=== PATIENT | female | born 1990 | race Caucasian/White ===

== ENCOUNTER 2019-01-16 02:10 | Inpatient (IN) | payer OTHER ==
[2019-01-16] MEDS ORDERED: Buffered Lidocaine 1% SYRIN* 1 ML/SYRINGE INTRADERM ONE (03:19)
[2019-01-16] MEDS ORDERED: Lactated Ringers 1000 ML Bag* 1,000 ML IV ONE (03:19)
[2019-01-16] MEDS ORDERED: Penicillin G Potassium IV* 5,000,000 UNITS in NS 0.9% 100 ML* 100 ML IVPB ONE (03:19)
[2019-01-16 03:45] LABS: ABS Basophils 0 10^3/ul (0-0.2); ABS Eosinophils 0.1 10^3/ul (0-0.6); ABS Lymphocytes 1.5 10^3/ul (1.0-4.8); ABS Monocytes 0.9 10^3/ul (0-0.8); ABS Neutrophils 11.3 10^3/ul (1.5-7.7); ABS Nucleated RBC 0 10^3/ul; Eosinophil % 0.5 %; Hematocrit 33 % (33-41); Hemoglobin 10.7 g/dL (12.0-16.0); Mean Corpuscular HGB Conc 33 g/dL (31-36); Mean Corpuscular Hemoglobin 27 pg (27-31); Mean Corpuscular Volume 84 fL (80-97); Mean Platelet Volume 9.6 fL (7.4-10.4); Nucleated Red Blood Cells % 0.1; Platelet Count 262 10^3/uL (150-450); Red Cell Distribution Width 14 % (10.5-15); White Blood Count 13.8 10^3/uL (3.5-10.8)
[2019-01-16] MEDS ORDERED: Lactated Ringers 1000 ML Bag* 1,000 ML IV SCH ×2 (04:00→06:00)
[2019-01-16] MEDS ORDERED: Oxytocin in LR* 20 UNITS/1,000 ML BAG IVPB ONE (05:11)
[2019-01-16] MEDS ORDERED: Ibuprofen TAB* 600 MG PO PRN (05:59)
[2019-01-16] MEDS ORDERED: Dibucaine 1% 28.35 GM TUBE PR PRN (05:59)
[2019-01-16] MEDS ORDERED: Acetaminophen TAB* 325 MG PO PRN (05:59)
[2019-01-16] MEDS ORDERED: Glycerin ADULT SUPP PR PRN (05:59)
[2019-01-16] MEDS ORDERED: RHO D Immune Globulin (HUMAN)* 300 MCG = 1,500 I.U. INJ IM ONE (05:59)
[2019-01-16] MEDS ORDERED: Witch Hazel PAD* JAR TOPICAL PRN (05:59)
[2019-01-16] MEDS ORDERED: Oxytocin in LR* 20 UNITS/1,000 ML BAG IVPB SCH (06:00)
[2019-01-16] MEDS ORDERED: Lidocaine 1% INJ* 10 MG/ML 30 ML SDV ONE (06:54)
[2019-01-16] MEDS ORDERED: Penicillin G Potassium IV* 2,500,000 UNITS in NS 0.9% 100 ML* 100 ML IVPB SCH (08:00)
--- NOTE | 2019-01-16 08:03 | HP ---
General Information - Reason for Visit Pt reports ctx, getting stronger over time. - General Information Maternal Age: 28 Grav: 1 Para: 0 SAB: 0 IEA: 0 Estimated Due Date: 01/16/19 Determined By: LMP Maternal Blood Type and Rh: O Negative - Results this Serology/RPR Result: Non-Reactive Rubella Result: Immune HBsAg Result: Negative HIV Result: Negative GBS Culture Result: Positive Past Medical History Delivery History: See Records - primigravida Pertinent Past Medical History: See Records - Lyme disease, depression / anxiety, migraines Pertinent Past Surgical History: See Records - wisdom tooth extraction Pertinent Family History: Non-Contributory - Antepartal Records Antepartal Records: Reviewed, Uncomplicated Review of Systems Constitutional: Uncomfortable - coping well with ctx CV Complaint: No Respiratory: Shortness of Breath: No Gastrointestinal: No Nausea/Vomiting, Normal Bowel Movement Genitourinary: No Dysuria, No Bleeding, No Leaking Fluid - no leaking fluid on arrival, but had SROM shortly after arrival Musculoskeletal: No Complaint, No Epigastric Pain Neurological: No Headache, No Visual Changes Movement: Normal Exam Allergies/Adverse Reactions: Allergies diphenhydramine Allergy (Verified 01/16/19 04:07) Shakes Vital Signs 01/16/19 01/16/19 01/16/19 05:41 06:24 07:15 Temperature 98.9 F 99.2 F 98.5 F Pulse Rate 79 75 93 Respiratory 16 16 18 Rate Blood Pressure 122/71 124/76 113/70 (mmHg) Lab Values - Entire Visit: Laboratory Tests 01/16/19 01/16/19 03:20 03:20 WBC 13.8 H RBC 3.90 Hgb 10.7 L Hct 33 MCV 84 MCH 27 MCHC 33 RDW 14 Plt Count 262 MPV 9.6 Neut % (Auto) 81.4 Lymph % (Auto) 11.0 Hale % (Auto) 6.8 Eos % (Auto) 0.5 Baso % (Auto) 0.3 Absolute Neuts (auto) 11.3 H Absolute Lymphs (auto) 1.5 Absolute Monos (auto) 0.9 H Absolute Eos (auto) 0.1 Absolute Basos (auto) 0 Absolute Nucleated RBC 0 Nucleated RBC % 0.1 Blood Type O Negative Antibody Screen Positive Antibody Identification Anti-D Direct Antiglob Test Negative - Measurements Height: 5 ft 2 in Weight: 69.853 kg Weight in lbs: 154.165703 Body Mass Index (BMI): 28.1 Pre- Weight: 58.967 kg Weight Gained This : 24 lbs and 0 ozs - Exam Breast: Breast Exam Deferred CVA: No CVA Tenderness Extremities: No Edema Heart: Normal Rhythm/Heart Sounds HEENT: No Significant Findings Lungs: Clear Bilaterally Rectal: Rectal Exam Deferred Reflexes: DTR 2+ Thyroid: No Thyromegaly - Abdominal Exam Abdomen Exam: Non-Tender, Fundal Height Consistent with Dates - Ultrasound/Biophysical Profile Ultrasound Status: Not Done Targeted Exam Findings See L&D Outpatient Visit Provider Note for Findings: N/A Estimated Weight: 7.5# Membrane Status: SROM Amniotic Fluid Evaluation: Gross Rupture Bleeding/Discharge: Bloody Show - Exam deferred initially on arrival, not examined until fully dilated with urge to push EFM Findings - External Monitor Findings Baseline Heart Rate: 115 External Monitor Findings: No Pattern of Variable or Late Decelerations, Variability Moderate, Baseline Stable, Accelerations Absent Contractions: Regular Contraction Frequency: 3-4 minutes Assessment/Plan - Assessment 28 year old primigravida at term in active labor with spontaneously ruptured membranes, no evidence of acidemia, no evidence of chorioamnionitis - Plan Plan: Admit - Anticipate Vaginal Delivery - Date/Time of Admission Date of Admission: 01/16/19 Time of Admission: 03:00
[2019-01-16] MEDS: Docusate CAP* 100 MG PO SCH ×3 (10:06→20:57)
--- NOTE | 2019-01-16 21:58 | PROCNOTE ---
[facility] OB: Delivery Note - Delivery A Date of : 01/16/19 Time of : 04:59 [place] Sex: Female Weight at : 3.135 kg Score 1 Minute: 9 Score 5 Minutes: 9 Gestational Age in Weeks and Days at Delivery: 40 Weeks and 0 Days Delivery Method: Spontaneous Vaginal Labor: Spontaneous Amniotic Fluid: Clear Estimated Blood Loss: 500 Anesthesia/Analgesia: None Delivered By: Radha Arroyo - Nursery Level of Nursery: Regular/Bedside - Perineum Perineal Injury: 1st Degree Perineal Repair: By Delivering Practioner - Events Delivery Events of Note: Partial Course of Antibiotics - Risk for Falls Delivered OB Patient- Risk for Falls: Heavy Bleeding Fall Risk: Patient is at High Risk for Falls - Additional Delivery Notes Additional Delivery Notes: Pt admitted to Labor and Delivery in spontaneous active labor at term. Pt experienced SROM shortly after arrival, and GBS prophylaxis was initiated. She used the tub, position changes, and labor support for pain relief. Pt soon began to report pressure and an urge to push and was found to be fully dilated. Pt soon began spontaneous pushing efforts with steady descent. Pt brought infant to [facility], and was coached through slow, controlled delivery of the head. Shoulders were tight but followed with the next push. to maternal abdomen, dried and stimulated with vigorous cry, HR> 100. After cord pulsation ceased, cord clamped x2 and cut by 's father. Placenta soon delivered with gentle cord traction. Pitocin administered at 250 cc/hr via IV. Fundal massage expressed large amounts of clots, and bleeding was then minimal. Examination of the perineum revealed small first degree laceration, repaired using absorbable suture resulting in good hemostasis and tissue approximation. Mother and baby stable post delivery, anticipate normal course.
[2019-01-17 07:36] LABS: ABS Basophils 0.1 10^3/ul (0-0.2); ABS Eosinophils 0.2 10^3/ul (0-0.6); ABS Lymphocytes 2.2 10^3/ul (1.0-4.8); ABS Monocytes 0.7 10^3/ul (0-0.8); ABS Neutrophils 5.7 10^3/ul (1.5-7.7); ABS Nucleated RBC 0 10^3/ul; Eosinophil % 2.6 %; Hematocrit 24 % (33-41); Hemoglobin 7.8 g/dL (12.0-16.0); Lymphocyte % 24.5 %; Mean Corpuscular HGB Conc 33 g/dL (31-36); Mean Corpuscular Hemoglobin 28 pg (27-31); Mean Corpuscular Volume 84 fL (80-97); Mean Platelet Volume 9.3 fL (7.4-10.4); Nucleated Red Blood Cells % 0; Platelet Count 208 10^3/uL (150-450); Red Blood Count 2.83 10^6 /uL (3.70-4.87); Red Cell Distribution Width 14 % (10.5-15); White Blood Count 8.9 10^3/uL (3.5-10.8)
[2019-01-17] MEDS: Ferrous Gluconate TAB* 324 MG TAB PO SCH ×2 (08:00→21:43)
[2019-01-17] MEDS: Docusate CAP* 100 MG PO SCH ×3 (08:08→21:11)
[2019-01-18 07:54] VITALS: BP 102/71
[2019-01-18] MEDS: Docusate CAP* 100 MG PO SCH (08:27)
[2019-01-18] MEDS: Ferrous Gluconate TAB* 324 MG TAB PO SCH (08:39)
== END 2019-01-18 11:00 | disposition home or self-care (01) | DRG 560 ==
LOC: MCHOBOUT 02:10 → MCHOB 03:06
PROVIDERS: ADMIT Midwife; ATTEND Midwife
PROC: 10E0XZZ Delivery of Products of Conception, External Approach (ICD-10-PCS; principal; 2019-01-16)
PROC: 0HQ9XZZ Repair Perineum Skin, External Approach (ICD-10-PCS; 2019-01-16)
DX: O99.824 Streptococcus B carrier state complicating childbirth (principal); Z37.0 Single live birth; O99.344 Other mental disorders complicating childbirth; F41.8 Other specified anxiety disorders; O70.0 First degree perineal laceration during delivery; O69.9XX0 Labor and delivery complicated by cord complication, unspecified, not applicable or unspecified; O90.81 Anemia of the puerperium; D64.9 Anemia, unspecified; Z3A.40 40 weeks gestation of pregnancy
CPT/HCPCS: 36415; 85025; 86850; 86870; 86880; 86900; 86901; A9270-GY; J2540

== ENCOUNTER 2021-01-10 14:13 | Inpatient (IN) ==
[2021-01-10] MEDS ORDERED: Lactated Ringers 1000 ml BAG 1,000 ML IV ONE (15:13)
[2021-01-10] MEDS ORDERED: Penicillin G Potassium IV 5,000,000 UNITS in NS 0.9% 100 ml BAG 100 ML IVPB ONE (15:13)
[2021-01-10] MEDS ORDERED: Buffered Lidocaine 1% SYRIN 1 ml INTRADERM ONE (15:13)
[2021-01-10] MEDS ORDERED: Lactated Ringers 1000 ml BAG 1,000 ML IV SCH (16:00)
[2021-01-10 18:54] LABS: Urine Benzodiazepine Screen None Detected (None Detect); Urine Cannabinoids Screen None Detected (None Detect); Urine Opiates Screen None Detected (None Detect)
[2021-01-10] MEDS ORDERED: Dinoprostone 10 MG VAG.SUPP VAGINAL ONE (20:16)
[2021-01-11] MEDS ORDERED: Oxytocin in LR 20 UNITS/1,000 ML BAG IVPB ONE (10:26)
[2021-01-11] MEDS ORDERED: Oxytocin in LR 20 UNITS/1,000 ML BAG IVPB SCH (11:00)
[2021-01-11 11:13] LABS: ABS Basophils 0.1 10^3/ul (0-0.2); ABS Eosinophils 0.1 10^3/ul (0-0.6); ABS Lymphocytes 1.5 10^3/ul (1.0-4.8); ABS Monocytes 0.7 10^3/ul (0-0.8); ABS Neutrophils 7.4 10^3/ul (1.5-7.7); Eosinophil % 1.4 %; Hematocrit 33 % (35-47); Hemoglobin 11.1 g/dL (12.0-16.0); Lymphocyte % 15.3 %; Mean Corpuscular HGB Conc 34 g/dL (31-36); Mean Corpuscular Hemoglobin 30 pg (27-31); Mean Corpuscular Volume 88 fL (80-97); Mean Platelet Volume 10.1 fL (7.4-10.4); Platelet Count 262 10^3/uL (150-450); Red Blood Count 3.71 10^6 /uL (3.70-4.87); Red Cell Distribution Width 14 % (10-15); White Blood Count 9.8 10^3/uL (3.5-10.8)
[2021-01-11] MEDS: Penicillin G Potassium IV 3,000,000 UNITS in NS 0.9% 100 ml BAG 100 ML IVPB SCH ×2 (16:44→20:33)
[2021-01-11] MEDS ORDERED: Lidocaine 1% VIAL 10 MG/ML VIAL ONE (23:53)
[2021-01-12] MEDS ORDERED: Glycerin ADULT 2.4 gm SUPP PR PRN (02:05)
[2021-01-12] MEDS ORDERED: RHO D Immune Globulin (HUMAN) 300 MCG = 1,500 I.U. INJ IM PRN (02:05)
[2021-01-12] MEDS ORDERED: Varicella Virus Vaccine Live 0.5 ML VIAL SUBCUT ONE (02:05)
[2021-01-12] MEDS ORDERED: Dibucaine 1% OINT 28.35 GM TUBE PR PRN (02:05)
[2021-01-12] MEDS ORDERED: Witch Hazel PAD JAR TOPICAL PRN (02:05)
[2021-01-12] MEDS ORDERED: Lactated Ringers 1000 ml BAG 1,000 ML IV SCH (03:00)
[2021-01-12] MEDS: Oxytocin in LR 20 UNITS/1,000 ML BAG IVPB SCH ×2 (04:29→05:57)
[2021-01-12 04:40] LABS: ABS Lymphocytes 2.1 10^3/ul (1.0-4.8); ABS Monocytes 0.9 10^3/ul (0-0.8); ABS Neutrophils 14.1 10^3/ul (1.5-7.7); Eosinophil % 0.2 %; Hematocrit 24 % (35-47); Hemoglobin 7.9 g/dL (12.0-16.0); Lymphocyte % 12.3 %; Mean Corpuscular HGB Conc 33 g/dL (31-36); Mean Corpuscular Hemoglobin 29 pg (27-31); Mean Corpuscular Volume 89 fL (80-97); Mean Platelet Volume 9.1 fL (7.4-10.4); Platelet Count 225 10^3/uL (150-450); Red Blood Count 2.71 10^6 /uL (3.70-4.87); Red Cell Distribution Width 14 % (10-15); White Blood Count 17.2 10^3/uL (3.5-10.8)
[2021-01-12] MEDS ORDERED: Methylergonovine 0.2 mg AMPULE 1 ml AMP IM ONE (05:22)
[2021-01-12] MEDS ORDERED: Methylergonovine 0.2 mg AMPULE 1 ml AMP ONE (05:29)
[2021-01-12] MEDS ORDERED: Tranexamic Acid 1 GM/100ML BAG 0 MG/0 ML BAG IV ONE (05:37)
[2021-01-12] MEDS ORDERED: Ammonia Inhalant 1 EA AMP ONE (07:00)
[2021-01-12 19:30] LABS: ABS Basophils 0.1 10^3/ul (0-0.2); ABS Eosinophils 0.1 10^3/ul (0-0.6); ABS Lymphocytes 2.7 10^3/ul (1.0-4.8); ABS Monocytes 0.9 10^3/ul (0-0.8); ABS Neutrophils 9.7 10^3/ul (1.5-7.7); Hematocrit 28 % (35-47); Hemoglobin 9.5 g/dL (12.0-16.0); Lymphocyte % 19.6 %; Mean Corpuscular HGB Conc 34 g/dL (31-36); Mean Corpuscular Hemoglobin 30 pg (27-31); Mean Corpuscular Volume 89 fL (80-97); Mean Platelet Volume 9.1 fL (7.4-10.4); Platelet Count 213 10^3/uL (150-450); Red Blood Count 3.18 10^6 /uL (3.70-4.87); Red Cell Distribution Width 14 % (10-15); White Blood Count 13.5 10^3/uL (3.5-10.8)
[2021-01-13 06:52] LABS: ABS Basophils 0.1 10^3/ul (0-0.2); ABS Eosinophils 0.3 10^3/ul (0-0.6); ABS Lymphocytes 2.5 10^3/ul (1.0-4.8); ABS Monocytes 0.7 10^3/ul (0-0.8); ABS Neutrophils 7.6 10^3/ul (1.5-7.7); Eosinophil % 2.5 %; Hematocrit 29 % (35-47); Hemoglobin 9.9 g/dL (12.0-16.0); Lymphocyte % 22.6 %; Mean Corpuscular HGB Conc 35 g/dL (31-36); Mean Corpuscular Hemoglobin 30 pg (27-31); Mean Corpuscular Volume 88 fL (80-97); Mean Platelet Volume 9.1 fL (7.4-10.4); Platelet Count 205 10^3/uL (150-450); Red Blood Count 3.26 10^6 /uL (3.70-4.87); Red Cell Distribution Width 15 % (10-15); White Blood Count 11.1 10^3/uL (3.5-10.8)
[2021-01-13 08:05] VITALS: BP 115/69
== END 2021-01-13 17:32 | disposition home or self-care (01) | DRG 560 ==
LOC: MCHOBOUT 14:13 → MCHOB 14:47
PROVIDERS: ADMIT Midwife; ATTEND Midwife